=== PATIENT | female | born 1970 | race Caucasian/White ===

== ENCOUNTER 2024-01-30 12:13 | Day surgery (SDC) | payer OTHER ==
[~2024-01-30] VITALS: Ht 167.6 cm; Wt 70.3 kg
[~2024-01-30 12:13] MED LIST: CEFAZOLIN SOD 2 GM in D5W 50 ML IV ONE
[2024-01-30 13:10] LABS: HCG,QUAL RESULT NEGATIVE (NEGATIVE)
[2024-01-30 13:39] VITALS: O2SAT 98
[2024-01-30] MEDS ORDERED: ePHEDrine sulfate 50 MG/ML VIAL ONE (13:50)
[2024-01-30] MEDS ORDERED: fentaNYL CITRATE/PF 100 MCG/2 ML AMP IVP PRN (16:15)
[2024-01-30] MEDS ORDERED: ONDANSETRON HCL 4 MG/2 ML VIAL IVP PRN (16:15)
[2024-01-30] MEDS ORDERED: HYDROmorphone 1 MG/ML INJ. CARTRIDGE IVP PRN (16:15)
[2024-01-30] MEDS ORDERED: LR 1,000 ML IV ONE (16:15)
[2024-01-30] MEDS ORDERED: fentaNYL CITRATE/PF 100 MCG/2 ML AMP ONE (16:38)
[2024-01-30] MEDS: fentaNYL CITRATE/PF 100 MCG/2 ML AMP IVP PRN (16:45)
[2024-01-30 17:40] VITALS: BP_SYST 130; PULSE 67; RESP 18; TEMP 97.1
== END 2024-01-30 18:15 | disposition home or self-care (01) ==
LOC: SDS 12:13 → SMU 12:14 → SDS 18:15
PROVIDERS: ATTEND Surgery
DX: K40.91 Unilateral inguinal hernia, without obstruction or gangrene, recurrent (principal); K41.90 Unilateral femoral hernia, without obstruction or gangrene, not specified as recurrent; E78.5 Hyperlipidemia, unspecified; F32.A Depression, unspecified; Z98.890 Other specified postprocedural states; Z79.899 Other long term (current) drug therapy
CPT/HCPCS: 87081; 49659; 49651; 84703; 88302; J0690; J3490; J2765; J3465; J2405; J2704; J3010; J7060; J7120; C1727; C1781; J2710; S2900